=== PATIENT | male | born 1945 | race African-American/Black ===

== ENCOUNTER → 2016-12-01 | Outpatient (CLI) | payer BC ==
[~2016-12-01] MED LIST: ASPITAB2 PO; ATOR-24 PO; CILO50TA PO; CIPR1TAB10 PO; DOCU-94 PO; ENAL20TA PO; FOLI1TAB7 PO; INDA1TAB3 PO; INSU1INJ SC; LXP10 PO; METF-384 PO; METO-217 PO; MULT-506 PO; NIAC500T7 PO; OXYC-57 PO; PHEN-876 PO; PRS5 PO; TAMS0.4C38 PO; VITAMIN B3 PO
[2016-12-01 10:59] LABS: ESTIMATED AVERAGE GLUCOSE 146 mg/dl; HA1C FLAG Normal (Normal)
== END | disposition home or self-care (01) ==
LOC: C.LABBC 08:46
PROVIDERS: ATTEND Internal Medicine
DX: E11.9 Type 2 diabetes mellitus without complications (principal)

== ENCOUNTER → 2017-02-05 | Outpatient (CLI) | payer BC | END | disposition home or self-care (01) | LOC: C.LAB 09:46 | PROVIDERS: ATTEND Nurse Practitioner Adult Health | DX: R39.198 Other difficulties with micturition (principal) ==

== ENCOUNTER → 2017-02-13 | Outpatient (CLI) | payer BC ==
[2017-02-13 10:55] LABS: BASO % 0.4 %; BASO ABS # 0.02 K/uL (0-0.2); COMPLETE YES; EOS % 2.5 %; HEMATOCRIT 39.9 % (42-52); LYMPH % 27.1 %; MEAN CELL VOLUME 84.9 fL (80-100); MEAN CORPUSCULAR HEMOGLOBIN 28.5 pg (25-34); MEAN CORPUSCULAR HGB CONC 33.6 g/dl (32-36); MEAN PLATELET VOLUME 10.1 fL (7.4-10.4); MONO % 9.2 %; NEUT % 60.8 %; PLATELET COUNT 250 K/uL (130-400); WHITE BLOOD COUNT 5.53 K/uL (4.8-10.8)
[2017-02-13 11:03] LABS: ALT/SGPT 27 U/L (12-78); AST/SGOT 21 U/L (15-37); BLOOD UREA NITROGEN 16 mg/dl (7-18); BUN/CREATININE RATIO 16.8 (10-20); CALCIUM 9.4 mg/dl (8.5-10.1); CARBON DIOXIDE 33 mmol/L (21-32); CHLORIDE 97 mmol/L (98-107); CREATININE 0.93 mg/dl (0.60-1.40); GLUCOSE 74 mg/dl (70-99); POTASSIUM 4.2 mmol/L (3.5-5.1); SODIUM 133 mmol/L (136-145)
[2017-02-13 11:14] LABS: CHOLESTEROL 98 mg/dl (0-200); CHOLESTEROL/HDL RATIO 2.1; HDL CHOLESTEROL 46 mg/dl; LDL CHOLESTEROL CALCULATED 39 mg/dl; TRIGLYCERIDES 63 mg/dl (0-150); VERY LOW DENSITY LIPOPROT CALC 13 mg/dl
[2017-02-13 12:08] LABS: ESTIMATED AVERAGE GLUCOSE 148 mg/dl; HA1C FLAG Normal (Normal)
== END | disposition home or self-care (01) ==
LOC: C.LABBC 08:14
PROVIDERS: ATTEND Internal Medicine
DX: Z00.00 Encounter for general adult medical examination without abnormal findings (principal); I10 Essential (primary) hypertension; E78.00 Pure hypercholesterolemia, unspecified

== ENCOUNTER → 2017-03-10 | Outpatient (CLI) | payer BC ==
[~2017-03-10] MED LIST changes: -LXP10 PO
[2017-03-10 10:56] LABS: BASO % 0.3 %; BASO ABS # 0.02 K/uL (0-0.2); COMPLETE YES; HEMATOCRIT 40.5 % (42-52); IG% 0.2 %; LYMPH % 28.4 %; LYMPH ABS # 1.68 K/uL (1.2-3.4); MEAN CELL VOLUME 85.3 fL (80-100); MEAN CORPUSCULAR HEMOGLOBIN 27.6 pg (25-34); MEAN CORPUSCULAR HGB CONC 32.3 g/dl (32-36); MEAN PLATELET VOLUME 10.4 fL (7.4-10.4); NEUT % 58.1 %; PLATELET COUNT 247 K/uL (130-400); RED BLOOD COUNT 4.75 M/uL (4.7-6.1); WHITE BLOOD COUNT 5.92 K/uL (4.8-10.8)
[2017-03-10 11:19] LABS: BLOOD UREA NITROGEN 22 mg/dl (7-18); BUN/CREATININE RATIO 23.7 (10-20); CALCIUM 9.3 mg/dl (8.5-10.1); CARBON DIOXIDE 30 mmol/L (21-32); CHLORIDE 102 mmol/L (98-107); CREATININE 0.92 mg/dl (0.60-1.40); GLUCOSE 74 mg/dl (70-99); POTASSIUM 3.5 mmol/L (3.5-5.1); SODIUM 138 mmol/L (136-145)
== END | disposition home or self-care (01) ==
LOC: C.LABBC 08:03
PROVIDERS: ATTEND Urology
DX: N40.0 Benign prostatic hyperplasia without lower urinary tract symptoms (principal)

== ENCOUNTER 2017-03-19 11:51 | Day surgery (SDC) | payer BC ==
[2017-02-27 08:35] VITALS: BMI 22.0
--- NOTE | 2017-02-27 09:08 | PAT Medication Instructions ---
Service Date Feb 27, 2017. Current Home Medication List Aspirin Buffered (Al Hydrox-Mg (Ascriptin), 325 MG PO QPM Atorvastatin (Lipitor), 40 MG PO HS Cilostazol (Pletal), 50 MG PO BID Enalapril Maleate (Enalapril Maleate), 1 TAB PO BID Finasteride (Finasteride), 5 MG PO QAM Folic Acid (Folvite), 1 MG PO QAM Indapamide (Lozol), 1.25 MG PO QAM Insulin Isophan/Regular (Humulin 70/30), 30-35 UNITS SC QPM Insulin Isophan/Regular (Humulin 70/30), 25 UNITS SC QAM Metformin Hcl (Glucophage), 1,000 MG PO BID Metoprolol Succinate (Toprol Xl), 50 MG PO BID Multivitamin (Multivitamin), 1 TAB PO QAM Niacinamide (Niacin), 1 TAB PO HS Tamsulosin Hcl (Flomax), 0.4 MG PO HS [Vitamin B3], 1 TAB PO QAM Medication Instructions For Your Scheduled Surgery - Check with surgeon/prescribing physician for instructions: Aspirin Buffered (Al Hydrox-Mg (Ascriptin), 325 MG PO QPM Cilostazol (Pletal), 50 MG PO BID - Hold the following medications 48 hours prior to surgery: Metformin Hcl (Glucophage), 1,000 MG PO BID - Hold the following medications the morning of surgery: [Vitamin B3], 1 TAB PO QAM Multivitamin (Multivitamin), 1 TAB PO QAM Folic Acid (Folvite), 1 MG PO QAM Finasteride (Finasteride), 5 MG PO QAM Indapamide (Lozol), 1.25 MG PO QAM Enalapril Maleate (Enalapril Maleate), 1 TAB PO BID - Take the following medications the morning of surgery with a sip of water: Metoprolol Succinate (Toprol Xl), 50 MG PO BID - Hold the following medications as scheduled the night before surgery: Niacinamide (Niacin), 1 TAB PO HS Enalapril Maleate (Enalapril Maleate), 1 TAB PO BID - Take the following medications as scheduled the night before surgery: Tamsulosin Hcl (Flomax), 0.4 MG PO HS Metoprolol Succinate (Toprol Xl), 50 MG PO BID Insulin Isophan/Regular (Humulin 70/30), 30-35 UNITS SC QPM Atorvastatin (Lipitor), 40 MG PO HS - For Insulin Dependent Diabetic patients: Test blood sugar A.M. of surgery. - If Blood sugar greater than 150, take half of your regular dose of: Insulin Isophan/Regular (Humulin 70/30), take 12 units - If Blood sugar than 150. do not take any: Insulin Isophan/Regular ( Humulin 70/30) If you have any questions please call us at [phone] or [phone] or [phone]
[2017-02-27 09:40] LABS: URINE APPEARANCE CLEAR (CLEAR); URINE BILIRUBIN NEG (NEG); URINE COLOR YELLOW; URINE EPITHELIAL CELL AUTO 0-5 /lpf (0-5); URINE NITRITE NEG (NEG); URINE PH 6.5 (4.5-7.5); URINE SPECIFIC GRAVITY 1.019 (1.000-1.030); UROBILINOGEN NEG (NEG)
[2017-02-27 09:42] LABS: MANUAL MICROSCOPIC REQUIRED? NO; REVIEW REQ? NO
--- NOTE | 2017-02-27 09:55 | DIAGNOSTIC IMAGING REPORT ---
CHEST 2 VIEWS ROUTINE CLINICAL HISTORY: pat preoperative evaluation COMPARISON STUDY: No previous studies for comparison. FINDINGS: Prior median sternotomy. No evidence for cardiac enlargement. Lungs are clear. Diaphragms are smooth. IMPRESSION: No acute process. The above report was generated using voice recognition software. It may contain grammatical, syntax or spelling errors. Electronically signed by: Shorty Mark M.D. 02/27/2017 9:53 AM Dictated Date/Time: 02/27/2017 9:53 AM
[~2017-03-19] VITALS: Ht 170.2 cm; Wt 65.2 kg
[~2017-03-19 11:51] MED LIST changes: -CIPR1TAB10 PO; +CIPROFLOXACIN / D5W 400 MG IV SCH; -DOCU-94 PO; +FENTANYL CITRATE INJ 50 MCG/1 ML 2 ML VIAL ONE; +MIDAZOLAM HCL 1 MG/ML 2ML VIAL ONE; -OXYC-57 PO; -PHEN-876 PO
[2017-03-19 12:26] VITALS: BP 168/88; PULSE 53; TEMP 36.6; O2SAT 99; Ht 170.2 cm; Wt 65.2 kg
[2017-03-19] MEDS ORDERED: ONDANSETRON INJ 2 MG/ML 2 ML VIAL IV PRN (12:45)
[2017-03-19] MEDS: LACTATED RINGER'S 1000ML 1,000 ML IV SCH ×2 (12:45→14:58)
[2017-03-19] MEDS ORDERED: ATROPINE SULFATE 0.1 MG/ML 5ML SYR IV PRN (12:45)
[2017-03-19] MEDS ORDERED: EpHEDrine SULFATE INJ 50 MG/ML AMP IV PRN (12:45)
--- NOTE | 2017-03-19 13:31 | History & Physical Bridge Note ---
H&P Re-Evaluation Bridge Note: I have examined the patient, reviewed the History & Physical and in the interval since the performance of the History & Physical I have noted the following changes of clinical significance: No changes noted
[2017-03-19] MEDS ORDERED: BELLADONNA/OPIUM SUPP 60 MG SUPP PR ONE (13:48)
[2017-03-19] MEDS ORDERED: PROPOFOL IV EMULSION 10 MG/ML 20 ML VIAL IV ONE (14:05)
[2017-03-19] MEDS ORDERED: SODIUM CHLORIDE 0.9% INJ 10 ML VIAL ONE (14:05)
[2017-03-19] MEDS ORDERED: EpHEDrine SULFATE INJ 50 MG/ML AMP ONE (14:05)
[2017-03-19] MEDS ORDERED: LIDOCAINE HCL 2% 2 ML VIAL (20MG/ML) ONE (14:05)
[2017-03-19] MEDS ORDERED: ONDANSETRON INJ 2 MG/ML 2 ML VIAL ONE (14:06)
[2017-03-19] MEDS ORDERED: OXYCODONE/ACETAMINOPHEN 5-325 TAB PO PRN (14:30)
[2017-03-19] MEDS ORDERED: PHENAZOPYRIDINE HCL 200 MG TAB PO PRN (14:30)
--- NOTE | 2017-03-19 14:33 | [facility] Post Operative Brief Note ---
Immediate Operative Summary Operative Date Mar 19, 2017. Pre-Operative Diagnosis Benign prostate hypertrophy Post-Operative Diagnosis Same Procedure(s) Performed Transurethral bipolar resection and button vaporization of the prostate Surgeon Dr. Espinoza George Spare Person Surgeon(s) None Estimated Blood Loss 10 ml Findings Open fossa after completion with excellent hemostasis, UOs intact Specimens a. prostate chips Drains 22 fr bazan 10 cc H2O Anesthesia G[facility]MA Complication(s) None Disposition Recovery Room / PACU
[2017-03-19] MEDS ORDERED: DOCU-94 PO (14:34)
[2017-03-19] MEDS ORDERED: OXYC-57 PO (14:34)
[2017-03-19] MEDS ORDERED: PHEN-876 PO (14:34)
[2017-03-19] MEDS ORDERED: CIPR1TAB10 PO (14:34)
--- NOTE | 2017-03-19 14:38 | [facility] Operative Report ---
Operative Report Operative Date Mar 19, 2017. Pre-Operative Diagnosis Benign prostate hypertrophy Post-Operative Diagnosis Same Procedure(s) Performed Transurethral bipolar resection and button vaporization of the prostate Surgeon Dr. Espinoza George Perfect Bind Machine Operator Surgeon(s) None Estimated Blood Loss 10 ml Findings Open fossa after completion, excellent hemostasis, UOs intact after completion Specimens a. prostate chips Drains 22 fr bazan 10 cc H2O Anesthesia GALMA Complication(s) None Disposition Recovery Room / PACU Indications 71-year-old male with refractory voiding symptoms found to have a median lobe and BPH on office cystoscopy. He is here today for surgical resolution due to the failure of medical therapy to normalize his symptoms. Please see H&P for further details. Ciprofloxacin intravenously provided for antibiotic coverage and SCDs used for DVT prophylaxis. Description of Procedure Patient was properly identified and brought into the operative suite after identification of appropriate consent of the chart. General anesthesia with laryngeal mask was initiated and patient was prepped and draped in the standard fashion for this procedure. Full timeout procedure was followed. 24 British bipolar resectoscope was introduced into the bladder under direct visualization using a visual obturator. Bladder was surveyed in its entirety demonstrating mild to moderate trabeculation, no intravesical masses, papillary lesions, mucosal abnormalities or tumors. Ureteral orifices were appreciated in the normal anatomic location effluxing clear yellow urine bilaterally. These were noted to be intact after completion of the case with no evidence of injury. The were well removed from the bladder neck. Using a bipolar loop the median lobe was shaved down until flush with the trigone of the bladder. Fragments of prostate tissue were irrigated free from the bladder and sent for pathologic analysis as prostate chips. Bipolar button was then used to create a relaxing incision at the 5 and 7 o'clock position at the bladder neck to avoid future bladder neck contractures. Lateral lobe vaporization was undertaken up to the level of the verumontanum with care being taken to avoid any dissection distally or perforation of the capsule. After this was complete a visually open and unobstructed prostatic urethra was appreciated. Excellent hemostasis obtained with cautery as necessary. After this was complete bladder was noted to be free of any residual tissue or chips. Bladder was partially distended resectoscope was removed. 22 British Bazan catheter with 10 mL of sterile water were placed into the bladder with clear drainage and a isovolemic return on irrigation. Anesthesia was reversed and patient was transferred to the recovery room in stable condition. Catheter was placed to gravity drainage. Belladonna and opium suppository was provided intraoperatively prior to transfer to the recovery room for postoperative analgesia. Prescription for ciprofloxacin, Percocet, Pyridium were placed within the chart and postoperative appointments including trial of void were confirmed. Patient is to contact our service should he note any fevers, chills, nausea, vomiting or other significant difficulties in the postoperative period I attest to the content of the Intraoperative Record and any orders documented therein. Any exceptions are noted below.
--- NOTE | 2017-03-19 14:45 | Discharge Instructions ---
Discharge Instructions Date of Service Mar 19, 2017. Admission Reason for Admission: Benign Prostatic Hyperplasia Discharge Discharge Diagnosis / Problem: Benign Prostatic Hyperplasia Discharge Goals Goal(s): Decrease discomfort, Improve disease control, Diagnostic testing, Therapeutic intervention Activity Recommendations Activity Limitations: as noted below Lifting Limitations: no more than 25 pounds (x 1 week) Exercise/Sports Limitations: rest today, gradually increase as tolerated ( light activity x 1 week ) May Resume Sexual Activity: after follow-up appointment Shower/Bathe: no limitations 1. You have been prescribed the antibiotic Ciprofloxacin, finish all as directed. 2. You may resume taking your Aspirin in 5 days if urine is clear. 3. Follow-up with Dr. George as scheduled. Please call our office at if you need to reschedule for any reason. . Discharge Diet Recommended Diet: Diabetes Type 2 Diet Procedures Procedures Performed: Transurethral bipolar resection and button vaporization of the prostate Pending Studies Studies pending at discharge: yes (prostate pathology) List of pending studies: Prostate pathology Laboratory Results Hemoglobin A1c Test 02/13/17 08:18 Range/Units Estimated Average Glucose 148 mg/dl Hemoglobin A1c 6.8 H 4.5-5.6 % Lipid Panel Test 02/13/17 08:18 Range/Units Triglycerides Level 63 0-150 mg/dl Cholesterol Level 98 0-200 mg/dl HDL Cholesterol 46 mg/dl Cholesterol/HDL Ratio 2.1 LDL Cholesterol, Calculated 39 mg/dl Medical Emergencies . Who to Call and When: Medical Emergencies: If at any time you feel your situation is an emergency, please call 911 immediately. . Non-Emergent Contact Non-Emergency issues call your: Urologist Call Non-Emergent contact if: temperature is above 101.5, your pain is not controlled, your pain is worsening, your pain is unusual for you, your pain is concerning you, you have any medication questions . . "Provider Documentation" section prepared by Milagro Bourne. . VTE Core Measure Inpt VTE Proph given/why not?: SCD's [place] Drug Monitoring Program Search Results: patient reviewed within database, no issues identified
[2017-03-19] MEDS: FENTANYL CITRATE INJ 50 MCG/1 ML 2 ML VIAL IV PRN ×2 (14:54→14:59)
--- NOTE | 2017-03-19 14:55 | Anesthesiology Progress Note ---
Anesthesia Post Op Note Date & Time Mar 19, 2017 at 14:55 Vital Signs Pain Intensity: 4.0 Vital Signs Past 12 Hours Date Time Temp Pulse Resp B/P (MAP) Pulse Ox O2 Delivery O2 Flow Rate FiO2 03/19/17 14:50 53 14 131/87 97 Room Air 03/19/17 14:40 56 14 121/76 98 Oxymask 10 03/19/17 14:32 36.0 53 14 108/73 98 Oxymask 10 03/19/17 12:26 36.6 53 18 168/88 (114) 99 Room Air Notes Mental Status: alert / awake / arousable, participated in evaluation Pt Amnestic to Procedure: Yes Nausea / Vomiting: adequately controlled Pain: adequately controlled Airway Patency, RR, SpO2: stable & adequate BP & HR: stable & adequate Hydration State: stable & adequate Anesthetic Complications: no major complications apparent
[2017-03-19 15:20] VITALS: BP 141/73; PULSE 56; TEMP 36.5; O2SAT 99
[2017-03-19 15:50] VITALS: BP 142/80; PULSE 49; O2SAT 99
[2017-03-19 16:20] VITALS: BP 144/76; PULSE 60; TEMP 36.8; O2SAT 99
== END 2017-03-19 16:40 | disposition home or self-care (01) ==
LOC: C.ACU 11:51
PROVIDERS: ATTEND Urology
DX: N40.1 Benign prostatic hyperplasia with lower urinary tract symptoms (principal); R39.11 Hesitancy of micturition; D64.9 Anemia, unspecified; I25.10 Atherosclerotic heart disease of native coronary artery without angina pectoris; I10 Essential (primary) hypertension; E78.00 Pure hypercholesterolemia, unspecified; E11.51 Type 2 diabetes mellitus with diabetic peripheral angiopathy without gangrene; Z95.1 Presence of aortocoronary bypass graft; Z79.4 Long term (current) use of insulin; Z79.899 Other long term (current) drug therapy

== ENCOUNTER → 2017-04-08 | Outpatient (CLI) | payer BC ==
[~2017-04-08] MED LIST changes: -ASPITAB2 PO; +CIPR1TAB10 PO; -CIPROFLOXACIN / D5W 400 MG IV SCH; -FENTANYL CITRATE INJ 50 MCG/1 ML 2 ML VIAL ONE; -MIDAZOLAM HCL 1 MG/ML 2ML VIAL ONE; +OXYC-57 PO; +PHEN-876 PO
== END | disposition home or self-care (01) ==
LOC: C.LABSPEC 16:59
PROVIDERS: ATTEND Urology
DX: N40.0 Benign prostatic hyperplasia without lower urinary tract symptoms (principal); R39.198 Other difficulties with micturition

== ENCOUNTER → 2017-06-02 | Outpatient (CLI) | payer BC ==
[2017-06-02 11:21] LABS: BLOOD UREA NITROGEN 19 mg/dl (7-18); BUN/CREATININE RATIO 21.8 (10-20); CREATININE 0.88 mg/dl (0.60-1.40)
[2017-06-02 11:25] LABS: PROSTATE SPECIFIC ANTIGEN 0.582 ng/ml (0.000-4.000)
[2017-06-02 13:35] LABS: ESTIMATED AVERAGE GLUCOSE 151 mg/dl; HA1C FLAG Normal (Normal)
== END | disposition home or self-care (01) ==
LOC: C.LABBC 08:07
PROVIDERS: ATTEND Internal Medicine Critical Care Medicine
DX: D64.9 Anemia, unspecified (principal); Z12.5 Encounter for screening for malignant neoplasm of prostate

== ENCOUNTER → 2017-09-10 | Outpatient (CLI) | payer OTHER ==
[~2017-09-10] MED LIST changes: -FOLI1TAB7 PO; +FOLI1TAB8 PO
[2017-09-10 10:54] LABS: BASO % 0.4 %; BASO ABS # 0.02 K/uL (0-0.2); EOS % 4.1 %; EOS ABS # 0.23 K/uL (0-0.5); HEMATOCRIT 40.6 % (42-52); HEMOGLOBIN 13.8 g/dL (14.0-18.0); IG# 0.02 K/uL (0.00-0.02); LYMPH % 29.4 %; LYMPH ABS # 1.66 K/uL (1.2-3.4); MEAN CELL VOLUME 85.7 fL (80-100); MEAN CORPUSCULAR HEMOGLOBIN 29.1 pg (25-34); MONO % 10.3 %; MONO ABS # 0.58 K/uL (0.11-0.59); NEUT % 55.4 %; NEUT ABS # 3.13 K/uL (1.4-6.5); PLATELET COUNT 236 K/uL (130-400); RED CELL DISTRIBUTION WIDTH CV 14.5 % (11.5-14.5); RED CELL DISTRIBUTION WIDTH SD 45.6 fL (36.4-46.3); WHITE BLOOD COUNT 5.64 K/uL (4.8-10.8)
[2017-09-10 11:29] LABS: HEMOGLOBIN A1C 6.6 % (4.5-5.6)
[2017-09-10 11:41] LABS: ALT/SGPT 28 U/L (12-78); AST/SGOT 22 U/L (15-37); BLOOD UREA NITROGEN 19 mg/dl (7-18); CALCIUM 9.4 mg/dl (8.5-10.1); CARBON DIOXIDE 33 mmol/L (21-32); CHOLESTEROL 103 mg/dl (0-200); GLUCOSE 52 mg/dl (70-99); LDL CHOLESTEROL CALCULATED 36 mg/dl; SODIUM 135 mmol/L (136-145); URIC ACID 6.2 mg/dl (2.6-7.2)
== END | disposition home or self-care (01) ==
LOC: C.LABBC 08:13
PROVIDERS: ATTEND Internal Medicine
DX: E11.9 Type 2 diabetes mellitus without complications (principal)